=== PATIENT | male | born 1995 | race African-American/Black ===

== ENCOUNTER 2021-04-27 15:47 | Emergency (ER) | payer SELFPAY ==
[~2021-04-27] VITALS: Ht 177.8 cm; Wt 93.0 kg
[2021-04-27 16:23] VITALS: BP 130/88
[2021-04-27 16:40] LABS: HEMATOCRIT. 42.4 % (42.0-52.0); HEMOGLOBIN. 14.1 g/dL (14.0-18.0); MEAN CORPUSCULAR HEMOGLOBIN 30.2 pg (28.0-32.0); MEAN CORPUSCULAR VOLUME 90.8 fL (80.0-94.0); MEAN PLATELET VOLUME 7.2 fl (7.4-10.4); PLATELET 404 x1000/uL (130-400); RED BLOOD CELL COUNT 4.67 mill/uL (4.7-6.1); RED CELL DISTRIBUTION WIDTH 12.7 % (11.6-14.6)
[2021-04-27 16:45] LABS: CHLORIDE 112 mEq/L (98-107)
[2021-04-27 16:50] LABS: ETHANOL BLOOD < 10 mg/dL
[2021-04-27 17:06] LABS: PLATELET ESTIMATE INCREASED
== END 2021-04-27 16:43 | disposition left against medical advice (07) ==
LOC: ER 15:47
DX: T40.991A Poisoning by other psychodysleptics [hallucinogens], accidental (unintentional), initial encounter (principal); Y92.9 Unspecified place or not applicable; F20.9 Schizophrenia, unspecified
CPT/HCPCS: 36415; 80053; 80320; 85025; 99283; G0480

== ENCOUNTER 2021-04-27 17:05 | Emergency (ER) | payer SELFPAY ==
[~2021-04-27] VITALS: Ht 177.8 cm; Wt 69.0 kg
[2021-04-27] MEDS ORDERED: ZIPRASIDONE MESYLATE 20MG/VIAL IM STA (17:23)
[2021-04-27 18:53] LABS: BASOPHILS % 0.3 % (0.0-2.0); EOSINOPHILS % 0.3 % (0.0-5.0); HEMOGLOBIN. 13.2 g/dL (14.0-18.0); LYMPHOCYTES % 8.4 % (20.0-50.0); MEAN CORPUSCULAR HEMOGLOBIN 30.1 pg (28.0-32.0); MEAN CORPUSCULAR VOLUME 90.9 fL (80.0-94.0); MEAN PLATELET VOLUME 7.2 fl (7.4-10.4); MONOCYTES % 3.8 % (2.0-8.0); NEUTROPHILS % 87.2 % (40.0-76.0); PLATELET 332 x1000/uL (130-400); RED CELL DISTRIBUTION WIDTH 12.7 % (11.6-14.6)
[2021-04-27 19:01] LABS: CHLORIDE 108 mEq/L (98-107)
[2021-04-27 19:04] LABS: ETHANOL BLOOD < 10 mg/dL
[2021-04-27 19:10] LABS: CREATINE KINASE 755 IU/L (39-308)
[2021-04-28 01:50] VITALS: BP 117/69
== END 2021-04-28 02:10 | disposition home or self-care (01) ==
LOC: ER 17:05
DX: R41.82 Altered mental status, unspecified (principal); F15.90 Other stimulant use, unspecified, uncomplicated; F17.200 Nicotine dependence, unspecified, uncomplicated; F16.20 Hallucinogen dependence, uncomplicated; Z86.59 Personal history of other mental and behavioral disorders; Z98.890 Other specified postprocedural states
CPT/HCPCS: 36415; 80053; 80320; 82550; 85025; 96372; 99285; J3486; G0480